=== PATIENT | female | born 1960 | race Two or more races ===

== ENCOUNTER 2017-06-08 10:39 | Emergency (ER) | payer MEDICAID ==
[~2017-06-08] VITALS: Ht 127 cm; Wt 104.3 kg
[2017-06-08 10:45] VITALS: BP 155/86
[2017-06-08] MEDS ORDERED: cefTRIAXone SOD 1,000 MG VL IM ONE (12:30)
[2017-06-08] MEDS ORDERED: cefTRIAXone W LIDOCAINE 1 GM IM IM ONE (12:30)
== END 2017-06-08 13:07 | disposition home or self-care (01) ==
LOC: ER 10:39
DX: J03.90 Acute tonsillitis, unspecified (principal); E11.9 Type 2 diabetes mellitus without complications; I10 Essential (primary) hypertension
CPT/HCPCS: 96372; 99283; J0696

== ENCOUNTER 2017-07-23 13:33 | Emergency (ER) | payer MEDICAID ==
[2017-07-23 14:00] VITALS: BP 114/72
[2017-07-23] MEDS ORDERED: ALBUTEROL SULF 2.5 MG/0.5ML(0.5%) NEB SOLN NEB ONE (16:30)
[2017-07-23] MEDS ORDERED: IPRATROPIUM BROM 0.5 MG/2.5ML INH SOL NEB ONE (16:30)
[2017-07-23 16:36] LABS: Basophils # (auto) 0 uL; Basophils % (auto) 0.8 % (0.0-2.0); Eosinophils # (auto) 0.1 uL; Eosinophils % (auto) 1.1 % (0.0-7.0); Hematocrit 44.1 % (36.0-46.0); Hemoglobin 14.9 g/dL (12.2-16.2); Lymphocytes # (auto) 0.9 uL; Lymphocytes % (auto) 19.8 % (10.0-50.0); Mean Corpuscular Hemoglobin 29.1 pg (28.0-32.0); Mean Corpuscular Hgb Conc. 33.7 g/dL (32.0-36.0); Mean Corpuscular Volume 86.4 fL (80.0-100.0); Monocytes # (auto) 0.4 uL; Monocytes % (auto) 8.1 % (0.0-12.0); Neutrophils # (auto) 3.4 uL; Neutrophils % (auto) 70.2 % (37.0-80.0); Nucleated Red Blood Cells % 0.2 %; Platelet Count (auto) 171 10^3/uL (140-450); Red Blood Cells 5.11 10^6/uL (4.0-5.20); Red Cell Distribution Width 14.1 % (11.8-14.3); White Blood Cell 4.8 10^3/uL (4.4-10.8)
[2017-07-23 16:54] LABS: Albumin 3.6 g/dL (3.4-5.0); BUN/Creatinine Ratio 18.1; Bilirubin, Total 0.1 mg/dL (0.2-1.0); Calcium 8.6 mg/dL (8.5-10.1); Potassium 3.9 mmol/L (3.5-5.1); Total Protein 7.8 g/dL (6.4-8.2)
== END 2017-07-23 17:39 | disposition home or self-care (01) ==
LOC: ER 13:35
DX: J40 Bronchitis, not specified as acute or chronic (principal); I10 Essential (primary) hypertension; E11.9 Type 2 diabetes mellitus without complications
CPT/HCPCS: 36415; 71046; 80053; 82962; 84484; 85025